=== PATIENT | male | born 1955 ===

== ENCOUNTER 2017-09-30 11:32 | Emergency (ER) | payer OTHER ==
--- NOTE | 2017-09-30 11:56 | C.PDOC ---
History Of Present Illness 62 yr old male presents to the ER stating 2 days ago he slipped and fell from a ladder, landing on his right lower back and ever since he has had pain to the area. Patient reports the pain is made worse with walking and movement. Denies other injuries, chest pain, abdominal pain, dysuria, hematuria, bowel or bladder incontinence, neck pain, weakness or numbness. Time Seen by Provider: 09/30/17 11:55 Chief Complaint (Nursing): Back Pain History Per: Patient History/Exam Limitations: no limitations Onset/Duration Of Symptoms: Days (2) Past Medical History Reviewed: Historical Data, Nursing Documentation, Vital Signs Vital Signs: Last Vital Signs Temp 97.9 F 09/30/17 13:21 Pulse 67 09/30/17 13:21 Resp 16 09/30/17 13:21 BP 128/79 09/30/17 13:21 Pulse Ox 97 09/30/17 13:21 Family History: States: No Known Family Hx Review Of Systems Except As Marked, All Systems Reviewed And Found Negative. Cardiovascular: Negative for: Chest Pain Gastrointestinal: Negative for: Abdominal Pain Genitourinary: Negative for: Dysuria, Incontinence, Hematuria Musculoskeletal: Positive for: Back Pain (Right lower back pain). Negative for : Neck Pain Neurological: Negative for: Weakness, Numbness Physical Exam - Physical Exam Appears: Non-toxic, No Acute Distress Skin: Warm, Dry, No Rash Head: Atraumatic, Normacephalic Eye(s): bilateral: Normal Inspection Oral Mucosa: Moist Neck: Normal, Normal ROM, Supple Chest: Symmetrical, No Tenderness Cardiovascular: Rhythm Regular, No Friction Rub, No Murmur Respiratory: Normal Breath Sounds, No Rales, No Rhonchi, No Stridor, No Wheezing Gastrointestinal/Abdominal: Normal Exam, Soft, No Tenderness, No Guarding, No Rebound Back: Normal Inspection, No CVA Tenderness, Other ((+) Right sacral/paralumbar tenderness. No midline tenderness) Extremity: Normal ROM, No Swelling Neurological/Psych: Oriented x3, Normal Speech, Normal Cranial Nerves, Normal Motor, Normal Sensation Gait: Steady ED Course And Treatment O2 Sat by Pulse Oximetry: 100 (RA) Pulse Ox Interpretation: Normal - Other Rad X-Ray - LS Spine X-Ray: Viewed By Me, Read By Radiologist Interpretation: PROCEDURE: Radiographs of the Lumbar Spine. HISTORY: fall, lower back pain. COMPARISON: No prior. FINDINGS: BONES: Mild loss of the L5 high noted of uncertain etiology and indeterminate in nature. DISC SPACES: Severe narrowing of the intervertebral disc space at L5-S1 and [id number] narrowing of the disc space at L4-L5. OTHER FINDINGS: None. IMPRESSION: Mild loss of L5 right of uncertain etiology may represent old mild compression deformity. Moderate degenerative disc and endplate changes. Straightening of the lumbar spine likely due to muscle spasm. Medical Decision Making Medical Decision Making: PLAN: * X-Ray - LS Spine * Lidoderm TD * Toradol IM On re-exam, the patient reports improvement of symptoms. Pulse ox is 96% on RA. Lungs are CTA, heart is RRR. Abdomen is soft, non-tender and tolerating PO well. Ambulatory in the ED with steady gait. Follow up with the medical doctor within 1-2 days, Return if worsened. Disposition Counseled Patient/Family Regarding: Studies Performed, Diagnosis, Need For Followup, Rx Given - Disposition Referrals: [facility] [Outside] Disposition: HOME/ ROUTINE Disposition Time: 13:15 Condition: GOOD Additional Instructions: Follow up with the medical doctor within 1-2 days. Return if worsened. Prescriptions: Cyclobenzaprine [Cyclobenzaprine HCl] 10 mg PO BID #14 tab Naproxen [Naprosyn] 500 mg PO BID #20 tab predniSONE [Prednisone] 20 mg PO BID #10 tab Instructions: Sciatica (ED), Acute Low Back Pain (DC) Forms: [facility] (C[place] Rican), Work Excuse Print Language: CHILEAN - Clinical Impression Clinical Impression: Sciatica, Contusion of back - PA / COMMERCIAL LITIGATION ATTORNEY / Resident Statement MD/DO has reviewed & agrees with the documentation as recorded. - Scribe Statement The provider has reviewed the documentation as recorded by the Scribe Gabrielle Gomez All medical record entries made by the Kerry were at my direction and personally dictated by me. I have reviewed the chart and agree that the record accurately reflects my personal performance of the history, physical exam, medical decision making, and the department course for this patient. I have also personally directed, reviewed, and agree with the discharge instructions and disposition.
[2017-09-30] MEDS ORDERED: Lidocaine 5% Patch TD STA (12:02)
[2017-09-30] MEDS ORDERED: Lidocaine 5% Patch TD ONE (12:08)
--- NOTE | 2017-09-30 12:50 | RAD ---
PROCEDURE: Radiographs of the Lumbar Spine. HISTORY: fall, lower back pain COMPARISON: No prior. FINDINGS: BONES: Mild loss of the L5 high noted of uncertain etiology and indeterminate in nature. DISC SPACES: Severe narrowing of the intervertebral disc space at L5-S1 and [id number] narrowing of the disc space at L4-L5 OTHER FINDINGS: None. IMPRESSION: Mild loss of L5 right of uncertain etiology may represent old mild compression deformity. Moderate degenerative disc and endplate changes. Straightening of the lumbar spine likely due to muscle spasm.
[2017-09-30 13:22] VITALS: BP 128/79; PULSE 67; RESP 16; TEMP 97.9
[2017-09-30 15:03] VITALS: O2SAT 100
== END 2017-09-30 13:26 | disposition home or self-care (01) ==
LOC: C.ER 11:32
DX: M54.30 Sciatica, unspecified side (principal); S30.0XXA Contusion of lower back and pelvis, initial encounter; W11.XXXA Fall on and from ladder, initial encounter; Y92.89 Other specified places as the place of occurrence of the external cause
CPT/HCPCS: 72100; 96372; 99283; J1885

== ENCOUNTER 2017-10-02 16:39 | Emergency (ER) | payer SELFPAY ==
[2017-10-02 17:14] VITALS: BMI 33.9
[2017-10-02 17:17] VITALS: PULSE 82; RESP 18; TEMP 98.5
[2017-10-02 18:42] VITALS: BP 138/87; O2SAT 99
[2017-10-02] MEDS ORDERED: Dexamethasone 4 mg/1 ml IM STA (18:55)
[2017-10-02] MEDS ORDERED: Dexamethasone 4 mg/1 ml ONE (19:03)
--- NOTE | 2017-10-02 19:39 | CT ---
EXAM: CT Lumbar Spine Without Intravenous Contrast EXAM DATE/TIME: 10/02/2017 6:54 PM CLINICAL HISTORY: 62 years old, male; Pain; Low back pain; Additional info: Low back pain, ? compression deformity TECHNIQUE: Axial computed tomography images of the lumbar spine without intravenous contrast. All CT scans at this facility use one or more dose reduction techniques, viz.: automated exposure control; ma/kV adjustment per patient size (including targeted exams where dose is matched to indication; i.e. head); or iterative reconstruction technique. Coronal and sagittal reformatted images were created and reviewed. COMPARISON: There are no prior studies for comparison. FINDINGS: Vertebrae: T12, L1, L2-L3 and L4 are normal in height. There is minimal superior and inferior endplate deformity at L5 with minimal loss of height. There is minimal superior and inferior endplate deformity L3 and L4 with no loss of height. No acute fractures are identified. There are degenerative changes at multiple levels. Osteophyte formation is greatest at L3-L4, L4-L5 and L5-S1. There is degenerative facet disease greatest at L5/S1. There is sclerosis at the sacroiliac joints. There is partial ankylosis of the left sacroiliac joint. Discs/spinal canal/neural foramina: There is mild disc space narrowing T11/T12. There is minimal posterior disc bulging at L3/L4. There is posterior displaced narrowing and disc bulging L4-L5. There is more severe disc space narrowing with posterior bulging L5/S1. There are posterior lateral degenerative spur is L5/S1 with encroachment on the neural foramina. Soft tissues: Psoas and paraspinous muscles are symmetric. Vasculature: There are vascular calcifications. Kidneys and ureters: There is a nonobstructing left renal stone Reproductive: The prostate is enlarged.Seminal vesicles have the expected configuration. IMPRESSION: Degenerative changes greatest at L5-S1; no acute fracture Additional findings as described above.
--- NOTE | 2017-10-02 21:19 | C.PDOC ---
History Of Present Illness 62 year old male presents to the ED for evaluation of lower back pain that radiates down right leg which began 3 days ago. Patient states he underwent a fall 3 days ago and was evaluated in the ED. Patient presents to the ED because his pain has persisted. Patient denies hip pain, urinary/bowel incontinence, extremity numbness/weakness. Time Seen by Provider: 10/02/17 18:12 Chief Complaint (Nursing): Lower Extremity Problem/Injury History Per: Patient History/Exam Limitations: no limitations Onset/Duration Of Symptoms: Days Current Symptoms Are (Timing): Still Present Additional History Per: Patient Past Medical History Reviewed: Historical Data, Nursing Documentation, Vital Signs Vital Signs: Last Vital Signs Temp 98.5 F 10/02/17 17:14 Pulse 82 10/02/17 18:41 Resp 18 10/02/17 18:41 BP 138/87 10/02/17 18:41 Pulse Ox 99 10/02/17 21:21 - Medical History PMH: No Chronic Diseases Surgical History: No Surg Hx Family History: States: Unknown Family Hx - Social History Hx Alcohol Use: Yes Hx Substance Use: No - Immunization History Hx Tetanus Toxoid Vaccination: No Hx Influenza Vaccination: No Hx Pneumococcal Vaccination: No Review Of Systems Genitourinary: Negative for: Incontinence Musculoskeletal: Positive for: Back Pain (lower ) Neurological: Negative for: Weakness, Numbness Physical Exam - Physical Exam Appears: Non-toxic, No Acute Distress Skin: Normal Color, Warm, Dry Oral Mucosa: Moist Neck: Supple Chest: Symmetrical, No Deformity, No Tenderness Cardiovascular: Rhythm Regular, No Murmur Respiratory: Normal Breath Sounds, No Rales, No Rhonchi, No Wheezing Back: No CVA Tenderness, No Vertebral Tenderness, Paraspinal Tenderness (lumbar ) Extremity: Normal ROM (right hip and knee ), No Tenderness, Capillary Refill ( less than 2 seconds ), No Deformity, No Swelling Neurological/Psych: Oriented x3, Normal Speech, Normal Cognition, Normal Motor, Normal Sensation Gait: Steady ED Course And Treatment O2 Sat by Pulse Oximetry: 99 (on RA) Pulse Ox Interpretation: Normal - Other Rad lumbar spine CT X-Ray: Interpreted by Me, Viewed By Me, Read By Radiologist Interpretation: CT Scan. . . LUMBAR SPINE W/O CONTRAST Exam Date: 10/02/17. . This imaging exam was performed at [facility]. EXAM: CT Lumbar Spine Without Intravenous Contrast. . EXAM DATE/ TIME: 10/02/2017 6:54 PM. . CLINICAL HISTORY: 62 years old, male; Pain; Low back pain; Additional info: Low back pain, ? compression deformity. . TECHNIQUE: Axial computed tomography images of the lumbar spine without intravenous. contrast. All CT scans at this facility use one or more dose reduction. techniques, viz.: automated exposure control; ma/kV adjustment per patient size. (including targeted exams where dose is matched to indication; i.e. head); or. iterative reconstruction technique. Coronal and sagittal reformatted images were created and reviewed. . COMPARISON: There are no prior studies for comparison. . FINDINGS: Vertebrae: T12, L1, L2-L3 and L4 are normal in height. There is minimal. superior and inferior endplate deformity at L5 with minimal loss of height. There is minimal superior and inferior endplate deformity L3 and L4 with no. loss of height. No acute fractures are identified. There are degenerative. changes at multiple levels. Osteophyte formation is greatest at L3-L4, L4-L5. and L5-S1. There is degenerative facet disease greatest at L5/S1. There is. sclerosis at the sacroiliac joints. There is partial ankylosis of the left. sacroiliac joint. Discs/spinal canal/neural foramina: There is mild disc space narrowing. T11/ T12. There is minimal posterior disc bulging at L3/L4. There is posterior. displaced narrowing and disc bulging L4-L5. There is more severe disc space. narrowing with posterior bulging L5/S1. There are posterior lateral. degenerative spur is L5/S1 with encroachment on the neural foramina. Soft tissues: Psoas and paraspinous muscles are symmetric. Vasculature: There are vascular calcifications. Kidneys and ureters: There is a nonobstructing left renal stone. Reproductive: The prostate is enlarged.Seminal vesicles have the expected. configuration. . IMPRESSION: Degenerative changes greatest at L5- S1; no acute fracture Medical Decision Making Medical Decision Making: CT Lumbar Spine. Decadron IM, Toradol IM, Ultram PO administered. Disposition - Disposition Referrals: [facility] [Outside] Jermaine Hyman MD [Non-Staff] - Disposition: HOME/ ROUTINE Disposition Time: 21:17 Condition: GOOD Additional Instructions: Follow up with the medical doctor within 1-2 days. Return if worsened. Prescriptions: traMADol [Ultram] 50 mg PO Q6 PRN #20 tab PRN Reason: Pain Instructions: Lumbar Disc Herniation (ED) Forms: [facility] (Icelandic) - Clinical Impression Clinical Impression: Lumbar radiculopathy - PA / POLYSOMNOGRAPHY TECH / Resident Statement MD/DO has reviewed & agrees with the documentation as recorded. - Scribe Statement The provider has reviewed the documentation as recorded by the Scribe (Mikaela Moreno) All medical record entries made by the Scribe were at my direction and personally dictated by me. I have reviewed the chart and agree that the record accurately reflects my personal performance of the history, physical exam, medical decision making, and the department course for this patient. I have also personally directed, reviewed, and agree with the discharge instructions and disposition.
== END 2017-10-02 21:26 | disposition home or self-care (01) ==
LOC: C.ER 16:39
DX: M54.16 Radiculopathy, lumbar region (principal)
CPT/HCPCS: 72131; 96372; 99284; J1100; J1885